=== PATIENT | female | born 1965 | race Hispanic/Latino ===

== ENCOUNTER 2018-02-26 12:44 | Emergency (ER) | payer OTHER ==
[2018-02-26 13:06] LABS: #Basophils 0.1 thou/uL (0.0-0.2); #Eosinphils 0.3 thou/uL (0.0-0.7); #Lymphocytes 1.9 thou/uL (1.20-3.40); #Monocytes 0.4 thou/uL (0.11-0.59); #Neutrophils 6.6 thou/uL (1.40-6.50); %Basophils 1.2 % (0.0-1.0); %Eosinophils 3.2 % (0.0-10.0); %Lymphocytes 20.8 % (21.0-51.0); %Monocytes 4.5 % (0.0-10.0); %Neutrophils 70.4 % (42.0-75.0); Hemoglobin 15.1 g/dL (12.0-16.0); Mean Corpuscular HGB CONC 33.1 g/dL (32.0-36.0); Mean Corpuscular Hemoglobin 29.7 pg (27.0-31.0); Mean Corpuscular Volume 89.7 fl (81.0-99.0); Mean Platelet Volume 6.2 fL (7.4-10.4); Platelet Count 412 thou/uL (130-400); RBC Distribution Width 12.6 % (11.5-14.5); Red Blood Cell (RBC) Count 5.08 mill/uL (4.20-5.40); White Blood Cell (WBC) Count 9.3 thou/uL (4.8-10.8)
[2018-02-26] MEDS ORDERED: Ondansetron HCl/PF 4 MG/2 ML Vial ONE ×2 (13:06→13:35)
[2018-02-26] MEDS ORDERED: Pantoprazole 40 MG VIAL ONE ×2 (13:07→15:38)
[2018-02-26] MEDS ORDERED: Morphine 4 MG/ML Carpuject ONE ×2 (13:10→15:29)
[2018-02-26 13:21] LABS: ALT (SGPT) 44 U/L (8-55); AST (SGOT) 28 U/L (5-34); Albumin 5.4 g/dL (3.5-5.0); Alkaline Phosphatase 103 U/L (40-150); Anion Gap 20 mmol/L (10-20); BUN (Urea Nitrogen) 18 mg/dL (9.8-20.1); Bilirubin, Total 0.7 mg/dL (0.2-1.2); Calc. Creatinine Clearance 0 mL/min (70-130); Calcium 10.3 mg/dL (7.8-10.44); Carbon Dioxide 23 mmol/L (22-29); Chloride 108 mmol/L (98-107); Estimated GFR-MDRD 68; Globulin 3.8 g/dL (2.4-3.5); Glucose 96 mg/dL (70-105); Potassium 3.5 mmol/L (3.5-5.1); Protein, Total 9.2 g/dL (6.0-8.3); Sodium 147 mmol/L (136-145)
[2018-02-26 13:25] LABS: CKMB 3.1 ng/mL (0-6.6); Troponin I Less than 0.010 ng/mL (< 0.028)
[2018-02-26] MEDS ORDERED: Water For Injection,Sterile 20 ML ONE (14:06)
--- NOTE | 2018-02-26 20:39 | RAD ---
PORTABLE CHEST: 02/26/18 An AP portable film at 1251 on 02/26 shows a normal sized heart and clear lungs. No infiltrate ore eff usion was seen. The trachea is midline and the mediastinum appears normal. IMPRESSION: No acute thoracic finding. POS: HOME
--- NOTE | 2018-02-26 21:15 | CT ---
CT THORAX WITH CONTRAST CT ABDOMEN WITH CONTRAST 02/26/[address] of the chest and abdomen was done in a single pass to evaluate vomiting and painful swallow ing. Axial slices were acquired after given IV contrast. Coronal reconstructions were obtained afterw ards. The main finding on this study is a dilated fluid-filled esophagus down to the level of the GE juncti on. It then assumes a normal caliber as it enters the stomach. It is not evident what the cause for t he distal esophageal obstruction is. It could just easily be a stricture as retained food or tumor. E ndoscopy will be needed to evaluate. The lungs are currently clear. There is no sign of aspiration. Some basilar atelectasis is seen poste riorly. There is no mediastinal mass or adenopathy. No pericardial fluid was seen. The liver is somewhat low in density so there may be some fatty infiltration, but the hepatic size is normal. The spleen, pancreas, Adrenal glands, kidneys and abdominal aorta appear normal. The gallbla dder is somewhat generous in size but I see no stones in it. The bowel is nondistended with no sign o f obstruction. No free air or free fluid was detected. IMPRESSION: Dilated fluid-filled esophagus down to the level of the GE junction. An obstruction at this point is assumed. Endoscopy needed to evaluate the area. Findings discussed with Dr. Merritt at 1516 on 02/26/18. POS: HOME
== END 2018-02-26 15:55 | disposition short-term general hospital (02) ==
LOC: BURERS 12:44
DX: K22.2 Esophageal obstruction (principal); E78.5 Hyperlipidemia, unspecified; I10 Essential (primary) hypertension; E55.9 Vitamin D deficiency, unspecified; Z79.899 Other long term (current) drug therapy
CPT/HCPCS: 71045; 71260; 74160; 80053; 82553; 84484; 85025; 93005; 96361; 96374; 96375; 96376; C9113; J1610; J2270; J2405